=== PATIENT | female | born 1995 | race Caucasian/White ===

== ENCOUNTER 2022-09-28 22:02 | Observation (INO) ==
[2022-09-28] MEDS ORDERED: MAGNESIUM SULF RIDER 4 GM/100 ML PREMIX IV ONE (23:19)
[2022-09-28] MEDS ORDERED: LACTATED RINGERS 1,000 ML IV ONE (23:21)
[2022-09-28] MEDS: MAGNESIUM SULF DRIP 40 GM/1,000 ML ML IV SCH (23:37)
[2022-09-29] MEDS: ACETAMINOPHEN 500 MG TABLET PO PRN ×4 (01:06→23:57)
[2022-09-29] MEDS: MEPERIDINE 25 MG/1 ML VIAL IV PRN ×3 (01:08→20:16)
[2022-09-29] MEDS: ONDANSETRON 4 MG/2 ML VIAL IV PRN ×3 (01:12→20:17)
[2022-09-29] MEDS: AMPICILLIN INJ 2,000 MG in SODIUM CHLORIDE 0.9% 100 ML IV SCH ×4 (03:24→21:01)
[2022-09-29] MEDS: OSELTAMIVIR 75 MG CAPSULE PO SCH ×2 (16:59→21:15)
[2022-09-29] MEDS ORDERED: LACTATED RINGERS 1,000 ML IV SCH (17:00)
[2022-09-29] MEDS: MAGNESIUM SULF DRIP 40 GM/1,000 ML ML IV SCH (19:00)
[2022-09-29] MEDS: NIFEdipine 10 MG CAPSULE PO SCH (23:57)
[2022-09-30] MEDS: AMPICILLIN INJ 2,000 MG in SODIUM CHLORIDE 0.9% 100 ML IV SCH ×2 (03:46→09:31)
[2022-09-30] MEDS: NIFEdipine 10 MG CAPSULE PO SCH ×2 (03:50→08:17)
[2022-09-30] MEDS: OSELTAMIVIR 75 MG CAPSULE PO SCH (09:30)
[2022-09-30] MEDS: ACETAMINOPHEN 500 MG TABLET PO PRN (09:40)
== END 2022-09-30 13:16 | disposition home or self-care (01) ==
LOC: N.LD 22:02 → N.LDOUT 22:02 → N.LD 22:07
PROVIDERS: ADMIT Specialist; ATTEND Specialist

== ENCOUNTER 2022-11-17 17:23 | Inpatient (IN) ==
[2022-11-17] MEDS ORDERED: OXYTOCIN/LR 20 UNIT/1,000 ML BAG IV ONE (17:51)
[2022-11-17] MEDS ORDERED: METHYLERGONOVINE 0.2 MG/1 ML AMP IM PRN (17:51)
[2022-11-17] MEDS ORDERED: TRANEXAMIC ACID 1,000 MG in SODIUM CHLORIDE 0.9% 100 ML IV PRN (17:51)
[2022-11-17] MEDS ORDERED: miSOPROStoL 200 MCG TABLET RECTAL PRN (17:51)
[2022-11-17] MEDS ORDERED: FAMOTIDINE 20 MG/2 ML VIAL IV ONE (17:51)
[2022-11-17] MEDS ORDERED: CITRIC ACID/SODIUM CITRATE 30 ML UDCUP PO ONE (17:51)
[2022-11-17] MEDS ORDERED: CARBOPROST TROMETHAMINE 250 MCG/ML AMP IM PRN (17:51)
[2022-11-17] MEDS ORDERED: TRANEXAMIC ACID 1,000 MG/10 ML VIAL ONE (17:58)
[2022-11-17] MEDS ORDERED: SODIUM CHLORIDE 0.9% 0 ML IV ONE (17:59)
[2022-11-17] MEDS ORDERED: LACTATED RINGERS 1,000 ML IV SCH (18:00)
[2022-11-17 18:09] LABS: Basophils # 0.1 10*3/uL (0.0-0.2); Basophils % 0.6 % (0.0-0.8); Eosinophils # 0.3 10*3/uL (0.0-0.87); Eosinophils % 3.2 % (0.00-10.9); Hematocrit 34.3 VOL% (35.7-47.0); Hemoglobin 11.1 GM/DL (12.0-16.0); Immature Granulocytes % 1.2 %; Immature Granulocytes Absolute 0.09 #; Lymphocytes # 2.9 10*3/uL (1.4-4.0); Lymphocytes % 36.8 % (21.3-54.2); Mean Corpuscular HGB Conc 32.4 GM/DL (32-36); Mean Corpuscular Volume 97.2 FL (87-102); Mean Platelet Volume 12.8 FL (9.6-12.0); Monocytes # 0.7 10*3/uL (0.11-0.8); Monocytes % 8.8 % (1.7-12.7); Neutrophils % 49.4 % (38.7-73.9); Platelet Count 145 T/CUMM (130-400); Red Blood Count 3.53 MC/CUMM (3.8-5.5); Red Cell Distribution Width 14.8 % (9.3-17.3); White Blood Count 7.8 T/CUMM (4-12)
[2022-11-17] MEDS ORDERED: ONDANSETRON 4 MG/2 ML VIAL ONE (18:25)
[2022-11-17] MEDS ORDERED: PHENYLEPHRINE 1 MG/10 ML SYRINGE IV ONE (18:25)
[2022-11-17] MEDS ORDERED: buprenorphine HCL 0.3 MG/ML VIAL ONE (18:26)
[2022-11-17 18:28] LABS: Alanine Aminotransferase 22 U/L (13-56); Albumin 2.3 G/DL (3.4-5.0); Alkaline Phosphatase 194 U/L (45-117); Aspartate Amino Transferase 32 U/L (0-37); Bilirubin,Total < 0.39 MG/DL (0.20-1.00); Blood Urea Nitrogen 5 MG/DL (7-18); Calcium 8.5 MG/DL (8.5-10.1); Carbon Dioxide 23 MMOL/L (21-32); Chloride 107 MMOL/L (98-107); Glucose 88 MG/DL (74-106); Osmolality,Calculated 274.4 MOS/KG (273-304); Potassium 4.2 MMOL/L (3.5-5.1); Sodium 140 MMOL/L (136-145); Total Protein 5.9 G/DL (6.4-8.2)
[2022-11-17] MEDS ORDERED: ceFAZolin 3,000 MG in SYRINGE 15 EACH IV ONE (18:30)
[2022-11-17] MEDS ORDERED: KETOROLAC 30 MG/1 ML VIAL ONE (18:50)
[2022-11-17] MEDS ORDERED: ACETAMINOPHEN INJ 1,000 MG/100 ML VIAL IV ONE (18:50)
[2022-11-17 19:00] LABS: Bacteria,Urine Few /HPF (Few); Bilirubin,Urine Negative (Negative); Blood, Urine Negative (Negative); Glucose,Urine (UA) Negative (Negative); Ketones,Urine Negative (Negative); Mucus,Urine Occasional /LPF (Occasional); Nitrite,Urine Negative (Negative); Protein,Urine Negative (Negative); RBC,Urine 1 /HPF (0-4); Squamous Epithelial Cell,Urine Occasional /HPF (0-10); Urine Appearance Clear (Clear); Urine Color Yellow (Yellow); Urine Urobilinogen 0.2 eU/dL (<2.0); Urine pH 6.5 (4.5-8.0)
[2022-11-17] MEDS ORDERED: propofoL 200 MG/20 ML VIAL IV ONE (19:14)
[2022-11-17] MEDS ORDERED: LACTATED RINGERS 1,000 ML IV ONE (19:41)
[2022-11-17 20:15] LABS: Cord Arterial Blood HCO3 21.2 MMOL/L
[2022-11-17 20:18] LABS: Cord Venous Blood HCO3 23.1 MMOL/L; Cord Venous Blood PCO2 38.4 MMHG; Cord Venous Blood PO2 41.5
[2022-11-17] MEDS ORDERED: ONDANSETRON 4 MG/2 ML VIAL IV PRN (22:10)
[2022-11-17] MEDS ORDERED: HYDROmorphone 1 MG/1 ML SYRINGE IV ONE (22:20)
[2022-11-18] MEDS: ACETAMINOPHEN 500 MG TABLET PO SCH ×3 (00:58→13:03)
[2022-11-18] MEDS: KETOROLAC 30 MG/1 ML VIAL IV SCH ×3 (00:59→13:04)
[2022-11-18 05:24] LABS: Basophils % 0.4 % (0.0-0.8); Eosinophils # 0.2 10*3/uL (0.0-0.87); Eosinophils % 1.6 % (0.00-10.9); Hemoglobin 9.3 GM/DL (12.0-16.0); Immature Granulocytes % 1.2 %; Immature Granulocytes Absolute 0.11 #; Lymphocytes # 2.2 10*3/uL (1.4-4.0); Lymphocytes % 22.8 % (21.3-54.2); Mean Corpuscular HGB Conc 33.2 GM/DL (32-36); Mean Corpuscular Volume 96.9 FL (87-102); Mean Platelet Volume 12.8 FL (9.6-12.0); Monocytes # 0.7 10*3/uL (0.11-0.8); Monocytes % 7.1 % (1.7-12.7); Neutrophils % 66.9 % (38.7-73.9); Platelet Count 116 T/CUMM (130-400); Red Blood Count 2.89 MC/CUMM (3.8-5.5); Red Cell Distribution Width 14.7 % (9.3-17.3); White Blood Count 9.5 T/CUMM (4-12)
[2022-11-18] MEDS ORDERED: ACETAMINOPHEN 325 MG TABLET PO PRN (06:13)
[2022-11-18] MEDS ORDERED: MAGNESIUM HYDROXIDE SUSP 30 ML UDCUP PO PRN (06:13)
[2022-11-18] MEDS ORDERED: SIMETHICONE CHEW 80 MG TABLET PO PRN (06:13)
[2022-11-18] MEDS ORDERED: LACTATED RINGERS 1,000 ML IV SCH (06:30)
[2022-11-18] MEDS ORDERED: RHO(D) IMMUNE GLOBULIN 300 MCG SYRINGE IM ONE (06:30)
[2022-11-18] MEDS: DOCUSATE SODIUM 100 MG CAPSULE PO SCH ×2 (09:00→20:55)
[2022-11-18] MEDS: MULTIVITAMIN (PRENATAL) TABLET PO SCH (09:00)
[2022-11-18] MEDS: IBUPROFEN 800 MG TABLET PO PRN (20:08)
[2022-11-19] MEDS: MULTIVITAMIN (PRENATAL) TABLET PO SCH (08:06)
[2022-11-19] MEDS: DOCUSATE SODIUM 100 MG CAPSULE PO SCH (08:06)
[2022-11-19 08:38] VITALS: BP 116/73
[2022-11-19] MEDS: IBUPROFEN 800 MG TABLET PO PRN (09:24)
== END 2022-11-19 10:48 | disposition home or self-care (01) | DRG 540 ==
LOC: N.LDOUT 17:23 → N.LD 17:24 → N.OB 11-18 12:45
PROVIDERS: ADMIT Specialist; ATTEND Specialist
PROC: LDCSECT (ICD-10-PCS; 2022-11-17 18:25)

== ENCOUNTER 2022-11-22 21:26 | Inpatient (IN) ==
[2022-11-22] MEDS ORDERED: FUROSEMIDE 40 MG/4 ML VIAL IV ONE (21:51)
[2022-11-22] MEDS ORDERED: MAGNESIUM SULF RIDER 4 GM/100 ML PREMIX IV ONE (21:53)
[2022-11-22] MEDS ORDERED: hydrALAZINE 20 MG/1 ML VIAL IV PRN (21:54)
[2022-11-22] MEDS: LABETALOL 200 MG TABLET PO SCH (22:01)
[2022-11-22] MEDS: LACTATED RINGERS 1,000 ML IV SCH (22:16)
[2022-11-22 22:22] LABS: Basophils # 0.1 10*3/uL (0.0-0.2); Basophils % 0.8 % (0.0-0.8); Eosinophils # 0.2 10*3/uL (0.0-0.87); Hematocrit 26.2 VOL% (35.7-47.0); Hemoglobin 8.6 GM/DL (12.0-16.0); Immature Granulocytes % 1.4 %; Immature Granulocytes Absolute 0.09 #; Lymphocytes # 2.3 10*3/uL (1.4-4.0); Lymphocytes % 34.3 % (21.3-54.2); Mean Corpuscular HGB Conc 32.8 GM/DL (32-36); Mean Corpuscular Volume 98.5 FL (87-102); Mean Platelet Volume 11.1 FL (9.6-12.0); Monocytes # 0.6 10*3/uL (0.11-0.8); Monocytes % 8.5 % (1.7-12.7); NRBC # 0.02 10*3/uL; Platelet Count 224 T/CUMM (130-400); Red Blood Count 2.66 MC/CUMM (3.8-5.5); Red Cell Distribution Width 14.9 % (9.3-17.3); White Blood Count 6.6 T/CUMM (4-12)
[2022-11-22 22:26] LABS: Bacteria,Urine Occasional /HPF (Few); RBC,Urine 1 /HPF (0-4)
[2022-11-22 22:29] LABS: Bilirubin,Urine Negative (Negative); Blood, Urine Negative (Negative); Glucose,Urine (UA) Negative (Negative); Ketones,Urine Negative (Negative); Nitrite,Urine Negative (Negative); Protein,Urine Negative (Negative); Urine Appearance Clear (Clear); Urine Color Yellow (Yellow); Urine Specific Gravity 1.015 (1.001-1.035); Urine pH 7.5 (4.5-8.0)
[2022-11-22 22:34] LABS: INR 0.9; PT Patient Result 9.7 SECS (10.1-12.1); Partial Thromboplastin Time 26.7 SECS (23.7-32.9)
[2022-11-22] MEDS: MAGNESIUM SULF DRIP 40 GM/1,000 ML ML IV SCH (22:42)
[2022-11-22 22:44] LABS: Alanine Aminotransferase 46 U/L (13-56); Albumin 2.4 G/DL (3.4-5.0); Alkaline Phosphatase 133 U/L (45-117); Aspartate Amino Transferase 114 U/L (0-37); Bilirubin,Direct < 0.100 MG/DL (0.0-0.20); Bilirubin,Total < 0.39 MG/DL (0.20-1.00); Blood Urea Nitrogen 11 MG/DL (7-18); Calcium 8.8 MG/DL (8.5-10.1); Carbon Dioxide 26 MMOL/L (21-32); Chloride 109 MMOL/L (98-107); Glucose 87 MG/DL (74-106); Osmolality,Calculated 276.4 MOS/KG (273-304); Potassium 3.9 MMOL/L (3.5-5.1); Sodium 140 MMOL/L (136-145); Total Protein 5.9 G/DL (6.4-8.2); Uric Acid 7.2 MG/DL (2.6-6.0)
[2022-11-23 00:28] LABS: Protein/Creatinine Ratio,Urine 0.3 RATIO
[2022-11-23] MEDS: ACETAMINOPHEN 500 MG TABLET PO PRN ×3 (03:30→21:18)
[2022-11-23] MEDS: LABETALOL 200 MG TABLET PO SCH ×3 (07:07→21:58)
[2022-11-23] MEDS ORDERED: BUTALBITAL/ACETAMIN/CAFFEINE 50-325-40 MG TABLET PO PRN (07:24)
[2022-11-23] MEDS ORDERED: SUMAtriptan 6 MG/0.5 ML VIAL SUBCUT ONE (10:00)
[2022-11-23] MEDS ORDERED: ONDANSETRON 4 MG/2 ML VIAL IM PRN (11:28)
[2022-11-23] MEDS ORDERED: ONDANSETRON 4 MG/2 ML VIAL IV PRN (12:30)
[2022-11-23] MEDS: BUTALBITAL/ACETAMIN/CAFFEINE 50-325-40 MG TABLET PO SCH ×3 (12:33→21:57)
[2022-11-23] MEDS: LACTATED RINGERS 1,000 ML IV SCH (12:36)
[2022-11-23] MEDS: MAGNESIUM SULF DRIP 40 GM/1,000 ML ML IV SCH (18:24)
[2022-11-24] MEDS: BUTALBITAL/ACETAMIN/CAFFEINE 50-325-40 MG TABLET PO SCH ×6 (02:06→21:30)
[2022-11-24] MEDS: LABETALOL 200 MG TABLET PO SCH ×3 (06:06→21:30)
[2022-11-24] MEDS ORDERED: DOCUSATE SODIUM 100 MG/10 ML UDCUP PO PRN (10:05)
[2022-11-24] MEDS: DOCUSATE SODIUM 100 MG CAPSULE PO PRN ×2 (10:15→21:26)
[2022-11-25] MEDS: BUTALBITAL/ACETAMIN/CAFFEINE 50-325-40 MG TABLET PO SCH ×4 (02:00→10:19)
[2022-11-25] MEDS: LABETALOL 200 MG TABLET PO SCH (06:56)
[2022-11-25] MEDS: ACETAMINOPHEN 500 MG TABLET PO PRN (08:28)
[2022-11-25 11:09] VITALS: BP 124/62
== END 2022-11-25 11:05 | disposition home or self-care (01) | DRG 561 ==
LOC: N.LDOUT 21:26 → N.LD 21:28 → N.OB 11-23 10:40
PROVIDERS: ADMIT Specialist; ATTEND Specialist